=== PATIENT | female | born 1995 | race African-American/Black ===

== ENCOUNTER 2017-08-04 20:46 | Emergency (ER) | payer MEDICAID ==
[~2017-08-04] VITALS: Ht 165.1 cm; Wt 105.0 kg
[2017-08-04 23:10] VITALS: BP 127/61
[2017-08-04 23:57] LABS: BASOPHILS % 0.6 % (0.0-2.0); EOSINOPHILS % 1.9 % (0.0-5.0); HEMATOCRIT. 41.8 % (36.0-48.0); HEMOGLOBIN. 14.6 g/dL (12.0-16.0); LYMPHOCYTES % 27.9 % (20.0-50.0); MEAN CORPUSCULAR HEMOGLOBIN 30.4 pg (28.0-32.0); MEAN PLATELET VOLUME 8.6 fl (7.4-10.4); MONOCYTES % 4.7 % (2.0-8.0); NEUTROPHILS % 64.9 % (40.0-76.0); PLATELET 342 x1000/uL (130-400); RED CELL DISTRIBUTION WIDTH 14.4 % (11.6-14.6)
[2017-08-04 23:59] LABS: CHLORIDE 105 mEq/L (98-107)
== END 2017-08-05 00:25 | disposition home or self-care (01) ==
LOC: ER 20:53
DX: O26.891 Other specified pregnancy related conditions, first trimester (principal); R07.89 Other chest pain; R11.0 Nausea; O99.511 Diseases of the respiratory system complicating pregnancy, first trimester; R06.02 Shortness of breath; F17.200 Nicotine dependence, unspecified, uncomplicated; F12.10 Cannabis abuse, uncomplicated; Z3A.01 Less than 8 weeks gestation of pregnancy
CPT/HCPCS: 36415; 80053; 81025; 84702; 85025; 93005; 99285

== ENCOUNTER 2018-11-05 16:43 | Emergency (ER) | payer MEDICAID ==
[~2018-11-05] VITALS: Ht 167.6 cm; Wt 91.0 kg
[2018-11-05] MEDS ORDERED: ASPIRIN 81MG TABLET PO ONE (17:15)
[2018-11-05] MEDS ORDERED: LORAZEPAM 2MG/ML CPJ IV ONE (17:15)
[2018-11-05 17:30] VITALS: BP 143/80
[2018-11-05 17:53] LABS: BASOPHILS % 0.9 % (0.0-2.0); EOSINOPHILS % 0.9 % (0.0-5.0); HEMATOCRIT. 45.3 % (36.0-48.0); HEMOGLOBIN. 15.3 g/dL (12.0-16.0); LYMPHOCYTES % 34.7 % (20.0-50.0); MEAN CORPUSCULAR HEMOGLOBIN 29.1 pg (28.0-32.0); MEAN PLATELET VOLUME 8.7 fl (7.4-10.4); MONOCYTES % 5.9 % (2.0-8.0); NEUTROPHILS % 57.6 % (40.0-76.0); PLATELET 384 x1000/uL (130-400); RED BLOOD CELL COUNT 5.27 mill/uL (4.2-5.4); RED CELL DISTRIBUTION WIDTH 14.6 % (11.6-14.6)
[2018-11-05 17:59] LABS: CHLORIDE 104 mEq/L (98-107)
[2018-11-05 18:00] LABS: INR 1.1; PROTHROMBIN TIME 10.8 sec (9.6-11.0)
[2018-11-05 18:03] LABS: ETHANOL BLOOD < 10 mg/dL
[2018-11-05 18:08] LABS: HCG SCREEN NEGATIVE
[2018-11-05] MEDS ORDERED: SODIUM CHLORIDE 0.9% 1,000 ML IV ONE (18:30)
== END 2018-11-05 19:25 | disposition home or self-care (01) ==
LOC: ER 16:43
DX: F16.10 Hallucinogen abuse, uncomplicated (principal); F41.9 Anxiety disorder, unspecified; F12.10 Cannabis abuse, uncomplicated
CPT/HCPCS: 36415; 71045; 80053; 80320; 84484; 84703; 85025; 85610; 93005; 96374; 99284; J2060; J7030; Z7610; G0480